=== PATIENT | female | born 1940 | race Caucasian/White ===

== ENCOUNTER 2019-02-01 05:00 | Inpatient (IN) ==
--- NOTE | 2018-12-26 15:28 | Anesthesiology Consultation ---
Date of Service December 26, 2018 Assessment & Plan (1) Encounter for pre-operative examination: Pt evaluated at [facility] for L TKA done 08/17. Pt had cardiac and medical clearance for that TKA as below: Cardio 08/08: ECHO reviewed. "No further testing recommended based on this.. stable and at optimizal cardiac status presently to proceed with the planned surgery accepting all cardiac risks." PCP 08/09: "Patient medically cleared by cardio and is currently asymptomatic, patient has never had any issues with anesthesia in the past, is able to do all her ADLs and has no current symptoms. Preop testing, labs, chest x-ray and EKG were all reviewed as well. Patient at this time is medically cleared for surgery." Chart Review Chart Review: Acceptable Risk for Surgery and Patient NOT seen in Pre Admission Testing History Surgery Operation Date: 02/01/19 07:30 Proposed Procedures p Right Total Knee Arthroplasty - Eyal San MD Height/Weight Height: 4 ft 10 in Weight: 62.596 kg Allergies Allergy/AdvReac Type Severity Reaction Status Date / Time erythromycin base AdvReac Mild Nausea Verified 12/26/18 13:05 Medications Home Medications Medication Instructions Recorded Confirmed Last Taken lisinopril 5 mg PO QAM 06/30/18 12/26/18 08/15/18 07:00 metoprolol tartrate [Lopressor] 50 mg PO QAM 06/30/18 12/26/18 08/17/18 06:00 mirtazapine 15 mg PO QPM 06/30/18 12/26/18 08/16/18 20:00 oxybutynin chloride 2.5 mg PO BID 06/30/18 12/26/18 08/17/18 06:00 ranitidine HCl [Zantac] 150 mg PO QAM 06/30/18 12/26/18 08/16/18 07:00 rosuvastatin [Crestor] 10 mg PO QPM 06/30/18 12/26/18 08/16/18 18:00 acetaminophen [Acetaminophen Extra 1,000 mg PO Q6H PRN 12/26/18 12/26/18 Unknown Strength] aspirin [Aspir-81] 81 mg PO DAILY 12/26/18 12/26/18 Unknown cholecalciferol (vitamin D3) 5,000 unit PO QAM 12/26/18 12/26/18 Unknown [Vitamin D3] Past Medical History Medical History Urinary urgency Diverticulosis GERD (gastroesophageal reflux disease) Pulmonary HTN PAF (paroxysmal atrial fibrillation) CAD (coronary artery disease) STENTS X 2 (2010) Hypertension Osteoarthritis Past Family History Family History Unknown Coronary heart disease Past Surgical History Surgical History History of breast biopsy X4 D/T CALCIUM DEPOSITS History of cardiac cath STENTS X 2 (2010) - done in [place] History of cataract surgery BILATERAL History of colonoscopy History of tonsillectomy History of tooth extraction History of total left knee replacement 08/17/18 [facility]. SAB + PNB both x 1 attempt, pt dre well, no issues noted on record. Social History Smoking Status: Former smoker Do You Dip or Chew Tobacco: No Smoking End Date: quit 50 yr ago Hx Alcohol Use: No Hx Substance Use: No Testing Electrocardiogram Date: 07/08/18 Findings: + NSR @ (70) Chest X-Ray Date: 07/08/18 Cardiomegaly with no active disease in the chest. Echocardiogram Date: 07/29/18 EF: 65% Mild TR. RVSP 33 mmHg. Mildly dilated aortic root/proximal descending aorta. Laboratory Results Laboratory Tests 12/20/18 12/20/18 12/20/18 12:43 12:43 12:43 WBC 4.13 L Hgb 12.9 Hct 39.8 Plt Count 183 PT 10.2 INR 1.0 APTT 24.5 Sodium 142 Potassium 4.3 Chloride 108 H Carbon Dioxide 29 BUN 10 Creatinine 0.88 Glucose 95 Hemoglobin A1c 12/20/18 12:43 WBC Hgb Hct Plt Count PT INR APTT Sodium Potassium Chloride Carbon Dioxide BUN Creatinine Glucose Hemoglobin A1c 5.7 H
--- NOTE | 2019-01-31 14:44 | History and Physical Report ---
DATE OF ADMISSION: 02/01/2019 CHIEF COMPLAINT: Chronic right knee pain. HISTORY OF PRESENT ILLNESS: This is a 78-year-old female patient of Dr. San'elvin complaining of chronic right knee pain, longstanding, now progressively getting worse. The patient has failed conservative treatment including intraarticular injections, Tylenol and the use of a cane. She has increased pain with weightbearing activities and her pain does interfere with her activities of daily living. The patient has been diagnosed with end-stage osteoarthritis per clinical and radiographic exams. The patient wished to proceed with a right total knee arthroplasty. PAST MEDICAL HISTORY: Hypertension, osteoarthritis, acid reflux. SOCIAL HISTORY: Nonsmoker, nondrinker. PAST SURGICAL HISTORY: Left total knee arthroplasty, breast biopsy bilaterally and tonsillectomy. FAMILY HISTORY: Noncontributory. REVIEW OF SYSTEMS: Chronic right knee pain, otherwise denies any shortness of breath, chest pain, nausea, vomiting or any other joint complaints. MEDICATIONS: Ranitidine 150 mg twice daily, aspirin 81 mg daily, metoprolol 50 mg daily, Crestor 10 mg daily, oxybutynin chloride 5 mg twice daily, lisinopril 5 mg daily, mirtazapine 15 mg one-half tablet at bedtime. ALLERGIES: INCLUDE ERYTHROMYCIN. PHYSICAL EXAMINATION: GENERAL: Well-developed, well-nourished 78-year-old female in no acute distress. She is alert and oriented x3 and pleasant. HEENT: Normocephalic, atraumatic. Extraocular motions are intact. Pupils are equal and reactive to light. HEART: Regular rate and rhythm, no murmurs. LUNGS: Clear. ABDOMEN: Soft, nontender, bowel sounds present. EXTREMITIES: Right knee limited range of motion of 0-120 degrees varus deformity, crepitation with passive range of motion. Mild effusion. Medial joint line tenderness. 4/5 strength with pain. NEUROLOGIC: Neurovascularly, she is intact in her right lower extremity. DIAGNOSES: Right knee end-stage osteoarthritis, hypertension, osteoarthritis, acid reflux. PLAN: The patient was advised of her diagnosis. Indications, risks, benefits, postop course have all been reviewed. The patient wished to proceed with a right total knee arthroplasty. Necessary consent forms, preoperative testing and clearances will be obtained.
[2019-02-01] MEDS ORDERED: ACETAMINOPHEN 500 MG TAB PO SCH (06:00)
[2019-02-01] MEDS ORDERED: METOCLOPRAMIDE HCL 10 MG TABLET PO SCH (06:00)
[2019-02-01] MEDS ORDERED: FAMOTIDINE 20 MG TAB PO SCH (06:00)
[2019-02-01] MEDS ORDERED: CeleBREX 200 MG CAP PO SCH (06:00)
[2019-02-01] MEDS ORDERED: CEFAZOLIN 1000MG 1,000 MG/7.5 ML SYR IV SCH (06:00)
[2019-02-01] MEDS ORDERED: ROPIVACAINE 0.5% HCL/PF 150 MG, BUPIVACAINE 0.5% MPF 30 ML, EPINEPHrine 30MG/30ML (OR U... INFIL SCH (06:00)
[2019-02-01] MEDS ORDERED: LR 500ML BOLUS, THEN 15ML/HR IV SCH (06:00)
[2019-02-01] MEDS ORDERED: GABAPENTIN 300 MG PO SCH (06:00)
[2019-02-01] MEDS ORDERED: dexAMETHasone 4 MG TAB PO SCH (06:00)
[2019-02-01] MEDS ORDERED: BUPIVACAINE 0.5 % 5 MG/1 ML PF 10ML VIAL ONE (06:25)
[2019-02-01] MEDS ORDERED: ROPIVACAINE 0.5% 5 MG/ML 30 ML VIAL ONE (06:26)
[2019-02-01] MEDS ORDERED: PROPOFOL IV EMULSION 10 MG/ML 20 ML VIAL IV ONE (06:45)
[2019-02-01] MEDS ORDERED: MIDAZOLAM HCL 1 MG/ML 2ML VIAL ONE (06:46)
[2019-02-01] MEDS ORDERED: fentaNYL citrate 100 MCG/2 ML VIAL ONE (06:46)
[2019-02-01] MEDS ORDERED: POVIDONE-IODINE OP SOLN 30 ML BTL ONE (07:00)
[2019-02-01] MEDS ORDERED: BACITRACIN INJ 50,000 UNIT VIAL ONE (07:00)
[2019-02-01] MEDS ORDERED: ORTHO JOINT ANESTHETIC ONE (07:00)
--- NOTE | 2019-02-01 07:08 | History & Physical Bridge Note ---
Date of Service February 01, 2019 History & Physical Bridge Note I have examined the patient, reviewed the History & Physical and in the interval since the performance of the History & Physical I have noted the following changes of clinical significance: no changes noted
--- NOTE | 2019-02-01 09:06 | Post Operative Brief Note ---
Immediate Post Op Note v1 Date of Surgery February 01, 2019 Pre & Post Diagnosis Operation Date: 02/01/19 07:30 Pre-Op Diagnosis: Right Knee Degenerative Joint Disease Post-Op Diagnosis: Right Knee Degenerative Joint Disease Procedure Operation Date: 02/01/19 07:30 Actual Procedures p Right Total Knee Arthroplasty(Right) - Eyal San MD Surgeon Eyal San MD Bulwark Carpenter Jamey ANDREWS Estimated Blood Loss 15 Findings Consistent with Post-Op Diagnosis Specimens bone cuts Drains Hemovac Drain Anesthesia Type Spinal MAC Complications none Disposition Accompanied Patient To Recovery: No Disposition: Recovery Room Overlapping Procedure I was immediately available: during the entire case.
[2019-02-01] MEDS ORDERED: ePHEDrine sulfate 50 MG/ML AMP IV PRN (09:10)
[2019-02-01] MEDS ORDERED: ATROPINE SULFATE 0.1 MG/ML 10ML SYR IV PRN (09:10)
[2019-02-01] MEDS ORDERED: fentaNYL citrate 100 MCG/2 ML VIAL IV PRN (09:10)
[2019-02-01] MEDS ORDERED: ONDANSETRON INJ 2 MG/ML 2 ML VIAL IV PRN ×2 (09:10→11:01)
--- NOTE | 2019-02-01 09:27 | Operative Report ---
Post Operative Report Pre & Post Diagnosis Operation Date: 02/01/19 07:30 Pre-Op Diagnosis: Right Knee Degenerative Joint Disease Post-Op Diagnosis: Right Knee Degenerative Joint Disease Procedure Operation Date: 02/01/19 07:30 Actual Procedures p Right Total Knee Arthroplasty(Right) - Eyal San MD Surgeon Eyal San MD Process Engineering Intern Jamey ANDREWS Estimated Blood Loss 15 Findings Consistent with Post-Op Diagnosis Specimens Bone cuts Drains 2 Hemovac Anesthesia Type Spinal MAC Complications none Disposition Accompanied Patient To Recovery: No Disposition: Recovery Room Indications 78-year-old female with chronic right knee pain end-stage osteoarthritis of the knee [id number] in the medial compartment. Status post left knee replacement in August now presents for staged right knee replacement. Description of Procedure Patient taken to the operating room placed supine on the operating table and anesthetized under spinal sedation regional block anesthesia. Exam under anesthesia demonstrated to varus knee flexion contracture 10 degrees flexion to 125 degrees no instability, moderate obesity about the upper thigh. A pneumatic tourniquet was placed about the thigh of the right lower extremity. The right lower extremity was prepped and draped in usual fashion. Leg was elevated exsanguinated with an Esmarch bandage and the pneumatic was raised to 325 mm mercury. An anterior incision was made across the right knee. The skin was incised longitudinally subcutaneous flaps were elevated and an incision was made through the medial retinaculum extending up into the mid third of the quadriceps tendon and extended down to the medial tibial tubercle. Intra-articular findings demonstrated [id number] medial compartment eburnated bone grade 3 patellofemoral DJD partial ACL tear medial meniscus tear. The knee was exposed by excising the infrapatellar fat pad, excising the meniscal remnants and cru ciate ligaments or remnants of the ligaments. Any inflamed synovial tissue was resected. The fat pad over the anterior femur was resected for placement of the component in that area. The lateral synovial bands were release. Appropriate releases were performed to balance ligaments. The femur was exposed. The custom femoral cutting block was pinned in position. The distal femoral cutting block was applied. The distal femoral cut was made with the oscillating saw. The size4 4-in-1 cutting block was placed. The anterior and posterior chamfer cuts were made. The knee was extended and a subperiosteal peel lateral release was performed around the patella. The patella width was measured and width was reproduced using freehand cut technique. The 32 millimeter symmetrical patella was used. 3 drill holes are made for the pegs. The tibia was exposed. A custom tibial cutting block was positioned and drill holes were made for the cutting guide. Cutting guide was placed and the proximal cut was made with the oscillating saw. All osteophytes were resected. The lamina music theory professor was used to assess ligamentous balance and the ligaments were balanced in extension and flexion. The tibia was reexposed and measured for a size C tibial component. This was externally rotated in line with the tibial tubercle and the fixation pins were drilled. The proximal tibia was fashioned with the drill and punch. The size4 femoral trial was inserted. The trial MC inserts were used. The 12 mm insert gave balanced ligaments through full range of motion. The patella tracked centrally. the trials were removed. The orthomix anesthetic cocktail was injected per protocol. The knee was then copiously irrigated with pulsatile lavage antibiotic solution with bacitracin. The final components were cemented with Simplex cement. The final components were Gregorio persona right CR size 4 femoral component, C tibia, MC size 12 mm poly-, 32 x 0.5 patella. While the cement cured with the knee in full extension the Betadine soak was used per protocol. After the cement cured, the knee joint was copiously irrigated with antibiotic solution with bacitracin. 2 drains were brought out laterally and connected to a Hemovac. The quadriceps tendon and medial retinaculum were closed with interrupted [id number] #1 Vicryl sutures. The knee was taken through a full range of motion and repair was secure. The subcutaneous tissues were closed with 2-0 Vicryl sutures and skin was closed with ry. Sterile dressings were applied and the patient tolerated the procedure well. Jamey ANDREWS my physician early childhood assistant, assisted in soft tissue retraction instrument management leg positioning the closure and will participate in the postoperative care of the patient. I attest to the content of the Intraoperative Record and any orders documented therein. Any exceptions are noted below.
--- NOTE | 2019-02-01 10:26 | XRay Report ---
XR knee RT 2V routine CLINICAL HISTORY: Postoperative evaluation. COMPARISON: None FINDINGS: Alignment of the total right knee arthroplasty is anatomic. There is no fracture or unexpe cted radiopaque foreign body. There are skin ry and drains. IMPRESSION: Expected findings following total right knee arthroplasty. Electronically signed by: Tim Magana M.D. 02/01/2019 10:25 AM
--- NOTE | 2019-02-01 10:53 | Anesthesiology Progress Note ---
Date of Service February 01, 2019 Anesthesia Post Procedure Vital Signs Vital Signs: Temp Pulse Pulse Resp BP Pulse Ox 02/01/19 10:45 80 17 94/56 L 95 02/01/19 10:30 77 18 107/53 L 95 02/01/19 10:15 87 17 108/66 94 02/01/19 10:05 37.4 C 80 18 102/61 96 02/01/19 09:55 79 16 98/55 L 96 02/01/19 09:45 80 18 98/66 L 96 02/01/19 09:35 73 16 95/56 L 97 02/01/19 09:25 90 20 102/58 L 99 02/01/19 09:16 36.7 C 78 17 84/55 L 98 02/01/19 05:48 37.0 C 71 20 175/92 H 98 Pain Intensity Right Knee: Pain Intensity: 0 Transfer of Care Handoff Completed per policy Notes Mental Status: alert / awake / arousable and participated in evaluation Nausea / Vomiting: adequately controlled Pain: adequately controlled Airway Patency, RR, SpO2: stable & adequate BP & HR: stable & adequate Hydration State: stable & adequate Neuraxial Anesthesia: was administered and sensory block is resolving Anesthetic Complications: no major complications apparent and Pt Satisfied with anesthetic care
[2019-02-01] MEDS ORDERED: HYDROmorphone INJ 0.5 MG/0.5 ML SYR IV PRN (11:01)
[2019-02-01] MEDS ORDERED: MAGNESIUM HYDROXIDE SUSP 30 ML UDC PO PRN (11:01)
[2019-02-01] MEDS ORDERED: NALOXONE HCL 0.4 MG/1 ML VIAL/CARP IV PRN (11:01)
[2019-02-01] MEDS ORDERED: TRAMADOL HCL 50 MG TABLET PO PRN (11:01)
[2019-02-01] MEDS ORDERED: BISACODYL 10 MG SUPP PR PRN (11:01)
--- NOTE | 2019-02-01 11:29 | History & Physical Report ---
Date of Service February 01, 2019 Assessment & Plan (1) Hypertension: continue metoprolol , delay start of lisinopril until 02/03, (2) CAD (coronary artery disease): continue aspirin and crestor (3) Depression: remeron (4) DVT prophylaxis: Surgical preference of aspirin 81 twice daily is chosen for DVT prevention History of Present Illness Primary Care Provider: Dina Renner 02/01/19 07:30 Anesthesia Type: MAC Spinal Regional Right Total Knee Arthroplasty Surgeon: Eyal San Patient was seen as medical consult was requested. She is in the presence of her daughter. She is doing quite well having return of sensation to her right leg having no complaints or problems. Upon review of her past medical history of which she has listed paroxysmal atrial fibrillation and pulmonary hypertension she said she was unaware of that these were problems that she has had. Does note that she does have coronary artery disease and having a stent 2013 and she is been quite stable since that time. I did personally review her medications she says she takes aspirin 81 a day lisinopril 5 a day metoprolol 50 a day Remeron 15 at bedtime Zantac 150 and Crestor 10 as well as vitamin D3 Allergies Allergy/AdvReac Type Severity Reaction Status Date / Time erythromycin base AdvReac Mild Nausea Verified 02/01/19 05:40 Home Medications Home Medications Medication Instructions Recorded Confirmed Type lisinopril 5 mg PO QAM 06/30/18 02/01/19 History metoprolol tartrate [Lopressor] 50 mg PO QAM 06/30/18 02/01/19 History mirtazapine 15 mg PO QPM 06/30/18 02/01/19 History oxybutynin chloride 2.5 mg PO BID 06/30/18 02/01/19 History ranitidine HCl [Zantac] 150 mg PO QAM 06/30/18 02/01/19 History rosuvastatin [Crestor] 10 mg PO QPM 06/30/18 02/01/19 History acetaminophen [Acetaminophen Extra 1,000 mg PO Q6H PRN 12/26/18 02/01/19 History Strength] aspirin [Aspir-81] 81 mg PO DAILY 12/26/18 02/01/19 History cholecalciferol (vitamin D3) 5,000 unit PO QAM 12/26/18 02/01/19 History [Vitamin D3] Past Med/Surg History Medical History Urinary urgency Diverticulosis GERD (gastroesophageal reflux disease) CAD (coronary artery disease) STENTS X 2 (2010) Hypertension Osteoarthritis Surgical History History of total left knee replacement 08/17/18 [facility]. SAB + PNB both x 1 attempt, pt dre well, no issues noted on record. History of breast biopsy X4 D/T CALCIUM DEPOSITS History of cardiac cath STENTS X 2 (2010) - done in [place] History of cataract surgery BILATERAL History of colonoscopy History of tonsillectomy History of tooth extraction Family History Unknown Coronary heart disease Social History Preferred Language: Albanian Communication Ability: Effective Visual Impairment: No Limitations Hearing Ability: Normal Beliefs That Will Affect Care: None Current Living Situation: Alone Other Information That Helps Us Care for You: No Feels Safe at Home: Yes Safety Concerns: Feels Safe At This Time Smoking Status: Former smoker Do You Dip or Chew Tobacco: No Smoking End Date: quit 50 yr ago Hx Alcohol Use: No Hx Substance Use: No Review of Systems Review of Systems: ROS: well nourished well developed. No double vision blurry vision No problems with speech or swallowing No palpitations, chest pain or pressure No Wheezing or breathing issues No abdominal pain nausea vomiting diarrhea changes in appetite or weight No burning urine urine frequency or changes in color Typical postoperative leg discomfort No skin rashes or oral lesions No unusual bruising or bleeding No focused back pain or numbness or loss of strength No changes in memory or confusion Physical Exam Physical Exam: The patient appeared well nourished and normally developed. Vital signs as documented. Head exam is unremarkable. normocephalic, atraumatic Neck is without jugular venous distension, thyromegaly, or lymphademopathy Lungs are clear to auscultation and percussion. Cardiac exam reveals Rhythm is regular. First and second heart sounds normal. Abdominal exam reveals normal bowel sounds, no masses, no organomegaly Extremities good capillary refill sensation and pulses distally in the right leg Neurologic exam is A&Ox3, no focal deficits except as limited by her recent surgery Psychologically seems neither anxious or depressed Skin is warm Dry without bruises or lesions Results & Data Vital Signs (Past 12 Hours) Vital Signs Temp Pulse Pulse Pulse Resp BP Pulse Ox 02/01/19 11:00 37.0 C 90 16 100/63 94 02/01/19 10:45 80 17 94/56 L 95 02/01/19 10:30 77 18 107/53 L 95 02/01/19 10:15 87 17 108/66 94 02/01/19 10:05 37.4 C 80 18 102/61 96 02/01/19 09:55 79 16 98/55 L 96 02/01/19 09:45 80 18 98/66 L 96 02/01/19 09:35 73 16 95/56 L 97 02/01/19 09:25 90 20 102/58 L 99 02/01/19 09:16 36.7 C 78 17 84/55 L 98 02/01/19 05:48 37.0 C 71 20 175/92 H 98
[2019-02-01] MEDS: SODIUM CHLORIDE 0.9% 1000ML 1,000 ML IV SCH ×2 (12:12→22:10)
[2019-02-01] MEDS: ACETAMINOPHEN 500 MG TAB PO SCH ×2 (13:32→21:11)
[2019-02-01] MEDS: CEFAZOLIN 1000MG 1,000 MG/7.5 ML SYR IV SCH (17:01)
[2019-02-01] MEDS: MIRTAZAPINE TAB 15 MG TAB PO SCH (21:11)
[2019-02-01] MEDS: DOCUSATE SODIUM 100 MG CAP PO SCH (21:11)
[2019-02-01] MEDS: SENNA 8.6 MG TAB PO SCH (21:11)
[2019-02-01] MEDS: CeleBREX 200 MG CAP PO SCH (21:11)
[2019-02-01] MEDS: ASPIRIN 81 MG ECTAB PO SCH (21:11)
[2019-02-01] MEDS: OXYBUTYNIN CHLORIDE 5 MG TAB PO SCH (21:11)
[2019-02-01] MEDS: ROSUVASTATIN CALCIUM 10 MG TAB PO SCH (21:11)
[2019-02-02] MEDS: CEFAZOLIN 1000MG 1,000 MG/7.5 ML SYR IV SCH (00:26)
[2019-02-02] MEDS: ACETAMINOPHEN 500 MG TAB PO SCH ×3 (05:49→21:23)
[2019-02-02 06:01] LABS: Hematocrit (blood only) 32.1 % (37-47); Hemoglobin 10.7 g/dL (12.0-16.0); Mean Corpuscular Hgb Conc 33.3 g/dL (32-36); Mean Corpuscular Volume 82.5 fL (80-100); Mean Platelet Volume 10.1 fL (7.4-10.4); Platelet Count 195 K/uL (130-400); RDW Coefficient of Variation 14.7 % (11.5-14.5); RDW Standard Deviation 44.4 fL (36.4-46.3); Red Blood Count 3.89 M/uL (4.2-5.4); White Blood Count 8.54 K/uL (4.8-10.8)
[2019-02-02 06:36] LABS: BUN Creatinine Ratio 13.8 (10-20); Calcium 9.1 mg/dl (8.5-10.1); Creatinine Clr Calc Pharmacy 33.3 ml/min; Est GFR (African American) 53.9; Est GFR (Non-African American) 46.5; Potassium 4.3 mmol/L (3.5-5.1)
[2019-02-02] MEDS: METOPROLOL TARTRATE 50 MG TAB PO SCH (08:42)
[2019-02-02] MEDS: MULTIVITAMIN TAB PO SCH (08:42)
[2019-02-02] MEDS: CHOLECALCIFEROL 1,000 UNITS TAB PO SCH (08:42)
[2019-02-02] MEDS: DOCUSATE SODIUM 100 MG CAP PO SCH ×2 (08:43→20:33)
[2019-02-02] MEDS: ASPIRIN 81 MG ECTAB PO SCH ×2 (08:43→20:34)
[2019-02-02] MEDS: OXYBUTYNIN CHLORIDE 5 MG TAB PO SCH ×2 (08:43→20:36)
[2019-02-02] MEDS: CeleBREX 200 MG CAP PO SCH ×2 (08:43→20:35)
[2019-02-02] MEDS: OXYCODONE HCL IR 5 MG TAB (IMMEDIATE RELEASE) PO PRN ×2 (08:48→18:16)
[2019-02-02] MEDS ORDERED: LISINOPRIL 5 MG TAB PO SCH (09:00)
--- NOTE | 2019-02-02 09:17 | Progress Note ---
DATE: 02/02/2019 SUBJECTIVE: The patient is postop day 1 status post right total knee arthroplasty. She is currently sitting in her chair at the bedside, eating her breakfast. Pain is controlled and she has no complaints. She denies shortness of breath, chest pain, lightheadedness, nausea and vomiting. OBJECTIVE: Dressings are clean, dry and intact. Calves were soft, nontender. Neurovascularly, she is intact. Toes were mobile. ASSESSMENT: Postop day #1 status post right total knee arthroplasty. PLAN: PT/OT protocol, weightbearing as tolerated today. Continue DVT prophylaxis with aspirin b.i.d., SCDs and HENRI hose. Continue current pain regimen. Discharge planning: The patient is planning on home health services upon discharge.
--- NOTE | 2019-02-02 18:41 | Hospitalist Progress Note ---
Date of Service February 02, 2019 Assessment & Plan (1) Hypertension: stable, continue home meds. (2) CAD (coronary artery disease): continue aspirin and crestor asymptomatic (3) Depression: remeron, no acute symptoms (4) DVT prophylaxis: Surgical preference of aspirin 81 twice daily is chosen for DVT prevention Subjective feeling good overall pain well controlled worked with therapy did well per her recollection no cp no sob. no other complaints Review of Systems Review of Systems: All systems reviewed & are unremarkable except as noted in HPI & below Physical Exam Physical Exam: gen nad, heent nc at mmm. breathing unlabored no pallor or icterus. neuro shows no focal deficits. skin no rashes no pallor or icterus. mental status good recent and remote recall normal mood and affect Results & Data Vital Signs (Past 12 Hours) Vital Signs Temp Pulse Resp BP Pulse Ox 02/02/19 15:02 36.5 C 66 16 111/70 02/02/19 07:07 36.4 C L 69 16 131/77 97
[2019-02-02] MEDS: ROSUVASTATIN CALCIUM 10 MG TAB PO SCH (20:33)
[2019-02-02] MEDS: SENNA 8.6 MG TAB PO SCH (20:35)
[2019-02-02] MEDS: MIRTAZAPINE TAB 15 MG TAB PO SCH (20:35)
[2019-02-03] MEDS: OXYCODONE HCL IR 5 MG TAB (IMMEDIATE RELEASE) PO PRN ×3 (03:24→12:55)
[2019-02-03 05:30] LABS: Hematocrit (blood only) 27.8 % (37-47); Hemoglobin 9.2 g/dL (12.0-16.0); Mean Corpuscular Hgb Conc 33.1 g/dL (32-36); Mean Corpuscular Volume 83.7 fL (80-100); Mean Platelet Volume 9.8 fL (7.4-10.4); Platelet Count 148 K/uL (130-400); RDW Coefficient of Variation 15.3 % (11.5-14.5); RDW Standard Deviation 46.9 fL (36.4-46.3); Red Blood Count 3.32 M/uL (4.2-5.4)
[2019-02-03 06:03] LABS: BUN Creatinine Ratio 22.9 (10-20); Calcium 8.5 mg/dl (8.5-10.1); Creatinine Clr Calc Pharmacy 33.6 ml/min; Est GFR (African American) 54.5; Potassium 4.5 mmol/L (3.5-5.1)
[2019-02-03] MEDS: ACETAMINOPHEN 500 MG TAB PO SCH ×2 (06:15→14:48)
[2019-02-03] MEDS: METOPROLOL TARTRATE 50 MG TAB PO SCH (07:49)
[2019-02-03] MEDS: CeleBREX 200 MG CAP PO SCH (07:50)
[2019-02-03] MEDS: ASPIRIN 81 MG ECTAB PO SCH (07:50)
[2019-02-03] MEDS: CHOLECALCIFEROL 1,000 UNITS TAB PO SCH (07:50)
[2019-02-03] MEDS: OXYBUTYNIN CHLORIDE 5 MG TAB PO SCH (07:50)
[2019-02-03] MEDS: MULTIVITAMIN TAB PO SCH (07:50)
[2019-02-03] MEDS: DOCUSATE SODIUM 100 MG CAP PO SCH (07:57)
--- NOTE | 2019-02-03 08:38 | Progress Note ---
DATE: 02/03/2019 SUBJECTIVE: The patient is postop day 2 status post right total knee arthroplasty. Upon entering the room, she is ambulating independently with a walker coming out of her bathroom. She walked over to her chair and sat down without any help. Pain is controlled and she denies any shortness of breath, chest pain, lightheadedness. She is eager to go home today. OBJECTIVE: Silverlon dressing is clean, dry and intact. She has some mild drainage noted in the dressing window, but otherwise there is no overt drainage. Calves were soft and nontender. Neurovascular is intact. Toes were mobile. Again, the patient is ambulating independently in her room with her walker. ASSESSMENT: Postop day 2 status post right total knee arthroplasty. PLAN: Continue PT/OT protocols, DVT prophylaxis with aspirin p.o. b.i.d., SCDs and HENRI carolinae. Continue current pain regimen. Discharge planning. Plan for discharge to home today with home health services.
[2019-02-03] MEDS ORDERED: LISINOPRIL 5 MG TAB PO SCH (09:00)
--- NOTE | 2019-02-14 15:30 | Discharge Summary ---
HISTORY OF PRESENT ILLNESS: This is a 78-year-old female patient of Dr. San'elvin complaining of chronic right knee pain, longstanding, now progressively getting worse. The patient failed conservative treatment and elected to proceed with a right total knee arthroplasty. PAST MEDICAL HISTORY: Hypertension, osteoarthritis, and acid reflux. POSTOPERATIVE COURSE: The patient underwent a right total knee arthroplasty on 02/01/2019. She was followed closely with medical consultation, DVT prophylaxis in the form of aspirin, physical therapy and pain control. The patient did very well postoperatively and was discharged home with home health services on postoperative day #2. PHYSICAL EXAMINATION: On discharge, right knee Silverlon dressing was clean, dry and intact. There was no redness or drainage. She had no calf tenderness. Negative Homans sign. Toes and ankle were mobile. Neurologically and neurovascularly, she was intact in her right lower extremity. DIAGNOSES: Status post right total knee arthroplasty with a history of hypertension, osteoarthritis, and acid reflux. PLAN: The patient was discharged home with home health services. She will continue her preadmission medications with the addition of aspirin twice daily for DVT prophylaxis and pain medications. The patient will follow up as scheduled as an outpatient.
== END 2019-02-03 14:30 | disposition home health service (06) | DRG 470 ==
LOC: ASU 05:00 → 3E 09:19